=== PATIENT | male | born 1950 | race Caucasian/White ===

== ENCOUNTER → 2017-10-23 | Outpatient (CLI) | payer MEDICARE ==
--- NOTE | 2017-10-23 16:08 | Diagnostic Imaging Report ---
PROCEDURE:EXTREMITY ULTRASOUND COMPARISON:None. INDICATIONS:INJURY OF RT LOWER LEG TECHNIQUE:Color duplex Doppler ultrasound evaluation analysis was performed in the usual manner in the lower leg anterior to the right rivas. FINDINGS: There is an approximately 3.2 x 1.3 x 2.1 cm mass with heterogeneous echogenicity, with a central hyperechoic focus in the subcutaneous tissues anterior to the right rivas, an area of laceration/palpable abnormality. No internal vascularity is noted. There is a prominent vessel in the posterior aspect, which may represent a feeder vessel. Overlying skin and soft tissue edema. CONCLUSION: 1. 3.2 cm mass with heterogeneous echogenicity in the subcutaneous soft tissues of the anterior lower leg, in area of palpable abnormality, likely representing a hematoma. Associated surrounding soft tissue edema. Jaylan Candelaria M.D. Dictated by: Jaylan Candelraia M.D. on 10/23/2017 at 16:09 Electronically approved by: Jaylan Candelaria M.D. on 10/23/2017 at 16:09
== END ==
LOC: US 14:05
PROVIDERS: ATTEND Internal Medicine
DX: S89.91XA Unspecified injury of right lower leg, initial encounter (principal)
CPT/HCPCS: 76882; 93971

== ENCOUNTER 2019-04-14 13:05 | Emergency (ER) | payer MEDICARE ==
[~2019-04-14] VITALS: Ht 182.9 cm; Wt 86.2 kg
--- OUTSIDE RECORDS SUMMARY | 2019-04-14 13:07 | XMS REPORT ---
Author Author [facility] Address Unknown Phone Unavailable Care Team Providers Care Box Gluer Name Role Phone AMBROSE STEELE Unavailable Unavailable Problems This patient has no known problems. Allergies, Adverse Reactions, Alerts This patient has no known allergies or adverse reactions. Medications This patient has no known medications. Results Test Description Test Time Test Comments Text Results Atomic Results Result Comments US EXTREMITY DAVEY NON-VAS [place] [address] Patient Name: JACQUELINE FERNANDEZ JR MR #: [id number] : 1950 Age/Sex: 66/M Acct #: [id number] Req #: [id number] Adm Physician: Ordered by: AMBROSE STEELE MD Report #: [id number] Location: US Room/Bed: Procedure: [id number] US/US EXTREMITY DAVEY NON-VAS Exam Date: Exam Time: REPORT STATUS: Signed PROCEDURE: EXTREMITY ULTRASOUND COMPARISON: None. INDICATIONS: INJURY OF RT LOWER LEG TECHNIQUE: Color duplex Doppler ultrasound evaluation analysis was performed in the usual manner in the lower leg anterior to the right rivas. FINDINGS: There is an approximately 3.2 x 1.3 x 2.1 cm mass with heterogeneous echogenicity, with a central hyperechoic focus in the subcutaneous tissues anterior to the right rivas, an area of laceration/palpable abnormality. No internal vascularity is noted. There is a prominent vessel in the posterior aspect, which may represent a feeder vessel. Overlying skin and soft tissue edema. CONCLUSION: 1. 3.2 cm mass with heterogeneous echogenicity in the subcutaneous soft tissues of the anterior lower leg, in area of palpable abnormality, likely repr esenting a hematoma. Associated surrounding soft tissue edema. Mikey Candelaria M.D. Dictated by: Mikey Candelaria M.D. on 10/23/2017 at 16:09 Electronically approved by: Mikey Candelaria M.D. on 10/23/2017 at 16:09 Dictated By: MIKEY CANDELARIA MD [id number] Transcribed By: FRANCISCO on 10/23/17 1609 COPY TO: AMBROSE STEELE MD
[2019-04-14] MEDS ORDERED: ACETAMINOPHEN 325 MG TAB ONE (13:21)
[2019-04-14] MEDS ORDERED: ACETAMINOPHEN 325 MG TAB PO ONE (13:45)
[2019-04-14] MEDS ORDERED: SODIUM CHLORIDE 0.9% 1000ML 1,000 ML IV STA (13:58)
--- NOTE | 2019-04-14 14:15 | NUR ---
Urine culture collected.
[2019-04-14] MEDS ORDERED: SODIUM CHLORIDE 0.9% 1000ML 1,000 ML ONE (14:27)
[2019-04-14] MEDS ORDERED: PIPER-TAZ 3.375 GM 0 ML ONE (14:39)
[2019-04-14] MEDS ORDERED: PIPER-TAZ 3.375 GM 50 ML IV ONE (14:45)
[2019-04-14] MEDS ORDERED: VANCOMYCIN 1GM/NS 250 ML 250 ML IV ONE (14:45)
--- NOTE | 2019-04-14 15:00 | NUR ---
BLOOD CULTURES DRAWN AND URNINE CULTURES DRAWN PER DR. ALVAREZ AND SENT WITH EMS AND PATIENT.
--- NOTE | 2019-04-14 15:05 | NUR ---
[facility] CALLED FOR TRANSPORT 30MIN ETA
--- NOTE | 2019-04-14 15:10 | NUR ---
PT TO BE TRANSFERED TO [facility], PT AND FAMILY AWARE OF POC, PT VOICES NO COMPLAINTS AT THIS TIME, VITAL SIGNS STABLE.
--- NOTE | 2019-04-14 15:17 | Diagnostic Imaging Report ---
EXAMINATION: CXR 1 [facility] INDICATION: Altered mental status, fever COMPARISON: None FINDINGS: LINES/TUBES:None LUNGS:The lungs are moderately inflated. Patchy opacity at the left lung base. PLEURA:No pleural effusion or pneumothorax. MEDIASTINUM:The cardiomediastinal silhouette appears normal in size and shape. BONES/SOFT TISSUES:No acute osseous injury. ABDOMEN:No free air under the diaphragm. IMPRESSION: Patchy opacity at the left lung base, more likely subsegmental atelectasis than superimposed aspiration or pneumonia. Signed by: Josselin Wells MD on 04/14/2019 3:14 PM
--- NOTE | 2019-04-14 15:18 | Diagnostic Imaging Report ---
Exam: Head CT without contrast History: Altered mental status Comparison studies: None Technique: Axial images were obtained from the skull base to the vertex. Coronal and sagittal images reconstructed from the axial data. Dose modulation, iterative reconstruction, and/or weight based adjustment of the mA/kV was utilized to reduce the radiation dose to as low as reasonably achievable. Radiation dose: Total DLP: 1090 mGy*cm. Estimated effective dose: DLP x 0.015 Intravenous contrast: None Findings: Scalp: No abnormalities. Bones: No fractures, blastic or lytic lesions. Brain sulci: Appropriate for age. Ventricles: Normal in size and configuration. No hydrocephalus. Extra-axial spaces: No masses, no fluid collection. Parenchyma: No abnormal densities. No masses, acute hemorrhage, acute or chronic vascular insults. Incidental prominent perivascular space along the free margin of the left lentiform nucleus. Sellar/suprasellar region: No abnormalities. Craniocervical junction: Patent foramen magnum. No Chiari one malformation. Incidental findings: Lens replacements for previous cataract surgery. Atherosclerotic calcifications in the carotid siphons. IMPRESSION: No acute intracranial abnormalities. Signed by: Dr. Fernandez Perez M.D. on 04/14/2019 3:15 PM
[2019-04-14] MEDS ORDERED: VANCOMYCIN 1GM/NS 250 ML 250 ML ONE (15:22)
== END 2019-04-14 15:46 | disposition other institution (70) ==
LOC: FSED 13:05
DX: R50.9 Fever, unspecified (principal); R42 Dizziness and giddiness; B34.9 Viral infection, unspecified; C91.10 Chronic lymphocytic leukemia of B-cell type not having achieved remission
CPT/HCPCS: 70450; 71045; 80053; 81003; 82553; 84484; 85025; 87400; 93005; 99284; J2543; J3370; J7030

== ENCOUNTER 2021-06-24 16:56 | Emergency (ER) | payer MEDICARE, OTHER ==
[~2021-06-24] VITALS: Ht 175.3 cm; Wt 85.7 kg
[2021-06-24] MEDS ORDERED: AUGMENTIN 500-1 EACH PO (17:14)
== END 2021-06-24 17:22 | disposition home or self-care (01) ==
LOC: FSED 17:15
DX: S51.852A Open bite of left forearm, initial encounter (principal); W55.01XA Bitten by cat, initial encounter; Y92.89 Other specified places as the place of occurrence of the external cause; Z85.6 Personal history of leukemia
CPT/HCPCS: 99282

== ENCOUNTER → 2022-08-23 | Outpatient (CLI) | payer MEDICARE ==
[~2022-08-23] MED LIST: AUGMENTIN 500-1 EACH PO
== END ==
LOC: MRI 07:20
PROVIDERS: ATTEND Internal Medicine
DX: M54.12 Radiculopathy, cervical region (principal)
CPT/HCPCS: 72141